=== PATIENT | male | born 1980 | race African-American/Black ===

== ENCOUNTER 2017-04-29 10:31 | Day surgery (SDC) | payer OTHER ==
[~2017-04-29] VITALS: Ht 177.8 cm; Wt 79.2 kg
[2017-04-29 11:19] LABS: BASOPHIL % 0.4 % (0-2); PLATELET COUNT 296 x10^3mcL (130-400)
[2017-04-29 11:39] LABS: CALCIUM 9.5 mg/dL (8.5-10.1); CARBON DIOXIDE 29.4 mmol/L (21-32); CHLORIDE SERUM 103 mmol/L (98-107); CREATININE SERUM 1.1 mg/dL (0.7-1.3); GFR1 > 60 mL/min; GLUCOSE SERUM 88 mg/dL (74-106); POTASSIUM SERUM 4.4 mmol/L (3.5-5.1); SODIUM SERUM 141 mmol/L (136-145)
[2017-04-29 17:49] VITALS: BP 135/80
== END 2017-04-29 17:40 | disposition home or self-care (01) ==
LOC: ED 10:31 → EDBEDREQSVC 11:25 → OR 11:30 → EDBEDREQ 11:31 → OR 17:40
PROVIDERS: Emergency Medicine; Neuromusculoskeletal Medicine, Sports Medicine
PROC: 0JXK0ZB Transfer Left Hand Subcutaneous Tissue and Fascia with Skin and Subcutaneous Tissue, Open Approach (ICD-10-PCS; principal; 2017-04-29 13:00)
DX: S68.623A Partial traumatic transphalangeal amputation of left middle finger, initial encounter (principal); F17.210 Nicotine dependence, cigarettes, uncomplicated; W20.8XXA Other cause of strike by thrown, projected or falling object, initial encounter; Y92.69 Other specified industrial and construction area as the place of occurrence of the external cause; Y99.0 Civilian activity done for income or pay
CPT/HCPCS: J0690; J2250; J2270; J3010; J3490; J7120